=== PATIENT | female | born 1990 | race African-American/Black ===

== ENCOUNTER 2018-12-21 14:55 | Emergency (ER) | payer OTHER ==
[~2018-12-21] VITALS: Ht 170.2 cm; Wt 54.0 kg
[~2018-12-21 14:55] MED LIST: DOXY50CA2 PO; FERR-43 PO; SULF1TAB48 PO
[2018-12-21 15:22] VITALS: BP 120/73
[2018-12-21 16:21] LABS: CLARITY URINE TURBID (CLEAR); COLOR URINE YELLOW (YELLOW); KETONES URINE NEGATIVE (NEGATIVE); LEUKOCYTE ESTERASE URINE 3+ (NEGATIVE); NITRITE URINE NEGATIVE (NEGATIVE); OCCULT BLOOD URINE 3+ (NEGATIVE); PH URINE 6.5 (4.5-8.0); PROTEIN URINE 2+ (NEGATIVE); SPECIFIC GRAVITY URINE 1.021 (1.005-1.030); UROBILINOGEN URINE 0.2 E.U./dL (0.2-1.0)
== END 2018-12-21 17:36 | disposition home or self-care (01) ==
LOC: ER 14:55
DX: N39.0 Urinary tract infection, site not specified (principal)
CPT/HCPCS: 81025; 99283